=== PATIENT | female | born 1950 | race Asian ===

== ENCOUNTER 2019-03-13 12:37 | Outpatient (CLI) | payer OTHER | END 2019-03-13 12:41 | disposition short-term general hospital (02) | LOC: AMB 12:37 | DX: R55 Syncope and collapse (principal); R53.1 Weakness; R25.1 Tremor, unspecified | CPT/HCPCS: A0425; A0427 ==

== ENCOUNTER 2019-03-13 12:47 | Emergency (ER) | payer OTHER ==
[~2019-03-13] VITALS: Ht 157.5 cm; Wt 102.5 kg
[2019-03-13 12:48] VITALS: TEMP 97.7
[2019-03-13 14:29] LABS: PLATELET COUNT 281 K/uL (152-353)
[2019-03-13 14:44] LABS: POTASSIUM 4.6 mmol/L (3.6-5.2)
[2019-03-13 15:35] VITALS: BP 108/52
== END 2019-03-13 15:40 | disposition home or self-care (01) ==
LOC: ED 12:47
PROVIDERS: Emergency Medicine
DX: I95.89 Other hypotension (principal); R00.1 Bradycardia, unspecified; R55 Syncope and collapse
CPT/HCPCS: 36415; 80053; 81000; 85027; 93005; 99283

== ENCOUNTER 2022-05-26 15:45 | Outpatient (CLI) | payer OTHER | END 2022-05-26 19:11 | disposition home or self-care (01) | LOC: CT 15:45 | PROVIDERS: ATTEND Internal Medicine | DX: R06.02 Shortness of breath (principal); Z86.16 Personal history of COVID-19; R05.3 Chronic cough; E11.9 Type 2 diabetes mellitus without complications; Z09 Encounter for follow-up examination after completed treatment for conditions other than malignant neoplasm | CPT/HCPCS: 82565; 84520; Q9963 ==

== ENCOUNTER 2022-12-09 15:48 | Outpatient (CLI) | payer OTHER | END 2022-12-09 19:45 | disposition home or self-care (01) | LOC: US 15:48 | PROVIDERS: ATTEND Internal Medicine | DX: M79.605 Pain in left leg (principal); M25.572 Pain in left ankle and joints of left foot; R22.42 Localized swelling, mass and lump, left lower limb ==